=== PATIENT | male | born 1950 | race Caucasian/White ===

== ENCOUNTER 2023-03-27 14:25 | Inpatient (IN) | payer OTHER, MEDICARE, SELFPAY ==
[2023-03-27 16:00] VITALS: BP 141/65; PULSE 72; RESP 18; TEMP 36.2; O2SAT 100
[2023-03-27 18:07] VITALS: BMI 17.8
--- NOTE | 2023-03-27 19:14 | PC.ADMIT ---
Pt arrived via stretcher from [facility]. He had an argument with his last Saturday evening. She called the police b/c she felt threatened by him. The pt as well as his stated he stopped taking his meds four years ago. The pt also stated he doesn't want to take any medications. The nurse called the [facility] on [facility], they stated they have pt's profile on a computer but nothing else and that they keep info on their clients only for two years. PT's VS: 141/65-72-18, T 97.1, O2sat 100%. Denies pain. Skin check completed. Discolorations on left forearm from hand cuffs per patient report. Resident alert and oriented x 4. Denies SI/HI. Good appetite for supper. Ambulates independently with steady gait.
--- NOTE | 2023-03-27 19:58 | HO.PM.IMCN ---
History of Present Illness Data of Consult Service Date: 03/27/23 Requesting physician: Ramon Curtis Primary Care Provider: Unknown Physician HPI Reason for consult: medical H&P 72-year-old male with history of prostate cancer treated with radiation therapy, history of right renal infarction, dyslipidemia, hypertension, multiple sclerosis, history of glaucoma who is a current 1 pack per day smoker admitted to Geriatric Psychiatry with consult placed to hospitalist service for medical H and P. The patient is no longer taking any of his home medications and has not picked up medications from his pharmacy in the last 4 years. He states that he does not want these chemicals in his body. He was previously taking baby aspirin, lisinopril, Crestor, fish oil, and Niaspan for his comorbidities. He does continue smoking 1 pack per day cigarettes and denies any illicit drug use or alcohol use. He continues to experience urinary retention and follows with Urology but again declines Flomax. He has no complaints at this time. Review of Systems Review of Systems: General: No fevers, malaise, unintentional weight loss HEENT: No blurred vision, diplopia. No sore throat, nasal congestion, rhinorrhea, sinus pain, ear pain Cardiovascular: No chest pain, palpitations, or leg edema Respiratory: No shortness of breath, wheezing, cough GI: No abdominal pain, nausea, vomiting, diarrhea, constipation, melena, hematochezia : No dysuria, hematuria, increased urinary frequency, decreased urinary output MSK: No myalgia, back pain Neuro: No headaches, weakness, paresthesias Skin: No rashes or lesions [facility] Medical History (Updated 03/27/23 @ 20:07 by THOMAS Howard) Chronic fatigue syndrome Dyslipidemia History of adenocarcinoma of prostate History of external beam radiation therapy History of glaucoma Hypertension Multiple sclerosis Peripheral artery disease Renal infarction Surgical History (Updated 03/27/23 @ 20:07 by THOMAS Howard) History of bilateral total hip arthroplasty Social History Household Members: Spouse Housing: Apartment Do you presently have visiting nurse or other home services: No Patient Tobacco Use Status: Current someday Tobacco user Tobacco use type: Cigarette e-Cigarette/Vaping Use: Never Used Currently Displaying Signs/Symptoms of Drug Intoxication Withdrawal: No Advance Directives: No Advance Directives Information Provided: Yes Do you have thoughts of harming others: None Do you have a plan to hurt others: No Plan Sexual orientation: Straight/Heterosexual Meds Allergies Allergy/AdvReac Type Severity Reaction Status Date / Time atorvastatin [From LIPITOR] Allergy Mild RASH Unverified 06/09/20 14:48 ezetimibe [From ZETIA] Allergy Mild RASH Unverified 06/09/20 14:48 Statins Depletion Allergy Unknown Uncoded 05/22/18 00:00 Active Medications: Current Medications Acetaminophen (Acetaminophen 325 Mg Tablet) 650 mg PO Q6H PRN PRN Reason: Headache/Pain Mild Scale (1-3) Al Hydroxide/Mg Hydroxide (Magnesium Hydrox/Alum Hydrox 30 Ml Oral.Susp) 30 ml PO Q6H PRN PRN Reason: Heartburn/Nausea Hydroxyzine HCl (Hydroxyzine Hcl 25 Mg Tablet) 25 mg PO Q6H PRN PRN Reason: Anxiety Magnesium Hydroxide (Milk Of Magnesia 30 Ml Oral.Susp) 30 ml PO DAILY PRN PRN Reason: Constipation Trazodone HCl (Trazodone Hcl 50 Mg Tablet) 50 mg PO BEDTIME MRX1 PRN PRN Reason: Insomnia Physical Exam Vital Signs and Narrative: Vital Signs: Last Vital Signs Temp 97.1 F 03/27/23 16:00 Pulse 72 03/27/23 16:00 Resp 18 03/27/23 16:00 BP 141/65 H 03/27/23 16:00 Pulse Ox 100 03/27/23 16:00 O2 Del Method Room Air 03/27/23 16:00 BMI result Body Mass Index 17.8 Constitutional - Awake and Alert, No apparent distress Eyes - PERRLA, EOMI Cardiovascular - S1S2, RRR, No edema Respiratory - Normal lung expansion, Normal respiratory effort, No respiratory distress, CTA bilaterally Gastrointestinal - NT / ND; +BS; No rebound or guarding Extremities - no calf tenderness bilaterally, no swelling Musculoskeletal - Normal inspection, normal ROM Skin - Warm/Dry Neurological - Alert & oriented x3, CN II-XII in tact, 5/5 strength BUE and BLE Psychological - Appropriate affect, ?paranoia Assessment and Plan (1) Routine medical exam: Status: Acute Plan 72-year-old male with history of prostate cancer treated with radiation therapy, history of right renal infarction, dyslipidemia, hypertension, multiple sclerosis, history of glaucoma who is a current 1 pack per day smoker admitted to Geriatric Psychiatry with consult placed for medical H and P. #Hx prostate cancer with urinary retention -pt opposed to restarting flomax -no recurrent UTI -Currently urinates but with incomplete bladder emptying -Understands medication may help with this, but declines #HTN -bp slightly above goal -recommend resuming lisinopril 10mg if elevated BPs persist -Pt currently declines, counseled #PAD w/ history renal infarction -took coumadin for 1.5 years then on asa but stopped -declines as this is rat poison #MS -asymptomatic, untreated # dyslipidemia -previously taking Crestor, discontinued 4 years ago on his own # cigarette smoker -1 pack per day -declines nicotine replacement therapy -counseling given, not interested in quitting Patient counseled on his medication noncompliance. Counseled on the risks of not taking medications to control blood pressure, arterial disease, cholesterol. Patient seems to understand but does not wish to take medications citing them as ?rat poison?. I have reviewed patient's CBC, BMP which were unremarkable. U tox was negative and urinalysis was without evidence of infection. Remainder of plan per Psychiatry Thank you for allowing me to participate in this consult. Signing off at this time. Please do not hesitate to call for further questions. Time Spent With Patient Time: Total time managing care of this patient today ____ minutes.
--- NOTE | 2023-03-28 09:43 | PC.NURSE ---
Pt declined nicotine replacement therapy.
--- NOTE | 2023-03-28 09:54 | HO.PSYADMNOT ---
[facility] Date of Service: 03/28/23 Chief Complaint: Mood Sources of Information: patient interviewed, chart reviewed and crisis/core team assessment reviewed HPI Subjective Notes: Cohen Warning and Conditional Voluntary Narrative: The patient is a 72-year-old male, , with no biological children, living with his , referred from the emergency room a [facility] for altered mental status and agitation. According to the crisis assessment, his called 911 since he was being threatening towards her and her cats. According to the 's report to the crisis team, the patient had not taking a shower for more than a year ago, he had become seclusive not leaving his apartment, with decreased activity. Also she reported that he had been more angry and irritable and that they are that she called 911 the police showed up he became physically assaultive towards the officers and he was handcuffed and referred to the emergency room while he continued to be agitated and needed to be medicated IM with Haldol.. According to his 's report, the patient had baseline is very kind and cooperative, functional able to do his own ADL less but apparently for the last 1-1/2 year ago he was unable to take a shower, he become seclusive, irritable and verbally abusive at times. She also reported poor short-term memory and worsening of his cognition, she suspects that he is developing dementia. On interview, the patient refused to engage in the interview, he was lying in his bed, not responding to questions, awake but despondent. We will try to reengage later. On the meantime, we will continue with the medical workout. He will remain on 15 minutes check. At this moment, no angry outbursts in the unit. ON admission, he signed himself with a CV and release of information of his . Cohen warning was provided but the patient refused to disclose that he understood. Past Psychiatric History: No prior psychiatric admissions or treatment. Medical Evaluation Reviewed: Yes [facility] Medical History Chronic fatigue syndrome Dyslipidemia History of adenocarcinoma of prostate History of external beam radiation therapy History of glaucoma Hypertension Multiple sclerosis Peripheral artery disease Renal infarction Surgical History History of bilateral total hip arthroplasty Family History: The patient had a sibling, brother who committed suicide when he was 25 by shooting himself with a gun in the head Social History: The patient had been for no more than 39 years, he does not have any biological children, he worked and now his retired. Substance History: Denies Trauma History: Denies Diagnostics Vital Signs (24Hr): Vital Signs - 24 hr 03/27/23 16:00 Temperature 97.1 F Pulse Rate 72 Respiratory Rate 18 Blood Pressure 141/65 H Pulse Oximetry 100 Oxygen Delivery Method Room Air BMI result Body Mass Index 17.8 Meds/Allergies Allergies Allergies Allergy/AdvReac Type Severity Reaction Status Date / Time atorvastatin [From LIPITOR] Allergy Mild RASH Unverified 06/09/20 14:48 ezetimibe [From ZETIA] Allergy Mild RASH Unverified 06/09/20 14:48 Statins Depletion Allergy Unknown Uncoded 05/22/18 00:00 Mental Status Exam Mental Status Exam Patient Appearance: Appropriate Patient Orientation: Person Level of Consciousness: Awake and Disoriented Patient Behavior: Guarded and Passive Mood Description: Withdrawn Affect Description: Constricted Patient Cognition Impaired: Yes Ability to Follow Directions: Good Speech Pattern: No Speech Hallucinations: None Delusions: Paranoid Ideation Thought Process: Incoherent and Distracted Thought Content: positive for [place] Judgement: Poor Assessment & Plan Assessment & Plan (1) Mood disorder: Status: Acute Code(s): F39 - Unspecified mood [affective] disorder (2) Psychosis: Status: Acute Code(s): F29 - Unspecified psychosis not due to a substance or known physiological condition Plan The patient is an elderly male with no prior formal psychiatric history who was brought from the emergency room of another hospital since he was agitated, verbally abusive towards his and threatening violence against his beds, physically assaultive against the police officers that handcuff him and chemically restrain the emergency room. Apparently he had been noncompliant with medical treatment for more than a year, neck elected his ADL less and a change in his mental status. Plan 1. Gather collateral information. We will try to contact his . 2. We will continue with medical workout we are ordering blood work and new CT scan. 3. Referral to the medical team. 4. 15 minutes checks. 5. At this moment we will keep it only on p.r.n. medications since with not have enough information. 6. Reassessment with results Patient educated on: diagnosis Informed Consent: further education needed Reason for continued inpatient stay Substantial Risk for: harm to others, inability to function, rapid decompensation and med/psych decompensation Statement Statement: I have reviewed the history and physical and performed a pertinent examination on my patient. No changes have occurred unless specified. If the History and Physical was not performed prior to admission, the Hospitalist's service will be consulted for completing the admission physical. Time Spent With Patient Time: Total time managing care of this patient today _45___ minutes.
--- NOTE | 2023-03-28 18:38 | PC.NURSE ---
Unable to assess pt d/t patient's mental status. Agitated b/c wants to go home. Seen by Dr Curtis.
[2023-03-29 08:13] VITALS: BP 104/59; PULSE 88; RESP 16; TEMP 36.6; O2SAT 97
[2023-03-29 12:54] VITALS: BMI 17.8
--- NOTE | 2023-03-29 13:31 | HO.PSYCHPN ---
Subjective Subjective Date of Service: 03/29/23 Reason For Visit: Mood Subjective Notes: Conditional Voluntary Interim History: The nursing staff reported the patient had been violent, he has refuse medications and he has been threatening staff whenever he comes around him. We will try to get collateral information. Today, he was seclussive in his room, threatening any staff whenever the doors open. Mental Status Exam Mental Status Exam Patient Appearance: Well Grooomed and Appropriate Patient Orientation: Person and Situation Level of Consciousness: Awake and Appropriate Patient Behavior: Posturing and Restless Mood Description: Hostile and Labile Affect Description: Constricted Patient Cognition Impaired: Yes Ability to Follow Directions: Poor Speech Pattern: Clear Hallucinations: None Delusions: Paranoid Ideation Thought Process: Incoherent and Distracted Thought Content: positive for [place], positive for Perseveration and positive for Poverty of Content Judgement: Poor Diagnostics Vital Signs (24Hr): Vital Signs - 24 hr 03/29/23 08:13 Temperature 97.9 F Pulse Rate 88 Respiratory Rate 16 Blood Pressure 104/59 L Pulse Oximetry 97 Oxygen Delivery Method Room Air BMI result Body Mass Index 17.8 Medications Medications Current Medications Acetaminophen (Acetaminophen 325 Mg Tablet) 650 mg PO Q6H PRN PRN Reason: Headache/Pain Mild Scale (1-3) Al Hydroxide/Mg Hydroxide (Magnesium Hydrox/Alum Hydrox 30 Ml Oral.Susp) 30 ml PO Q6H PRN PRN Reason: Heartburn/Nausea Hydroxyzine HCl (Hydroxyzine Hcl 25 Mg Tablet) 25 mg PO Q6H PRN PRN Reason: Anxiety Magnesium Hydroxide (Milk Of Magnesia 30 Ml Oral.Susp) 30 ml PO DAILY PRN PRN Reason: Constipation Olanzapine (Olanzapine 5 Mg Tablet) 5 mg PO BEDTIME CRISTAL Last Admin: 03/28/23 23:06 Dose: Not Given Olanzapine (Olanzapine Odt 10 Mg Tab.Rapdis) 10 mg TRANSLINGU BID PRN PRN Reason: agitation Trazodone HCl (Trazodone Hcl 50 Mg Tablet) 50 mg PO BEDTIME MRX1 PRN PRN Reason: Insomnia Allergies Allergies Allergy/AdvReac Type Severity Reaction Status Date / Time atorvastatin [From LIPITOR] Allergy Mild RASH Unverified 06/09/20 14:48 ezetimibe [From ZETIA] Allergy Mild RASH Unverified 06/09/20 14:48 Statins Depletion Allergy Unknown Uncoded 05/22/18 00:00 Assessment & Plan Assessment & Plan (1) Mood disorder: Status: Acute Code(s): F39 - Unspecified mood [affective] disorder (2) Psychosis: Status: Acute Code(s): F29 - Unspecified psychosis not due to a substance or known physiological condition Plan The patient is an elderly male with no prior formal psychiatric history who was brought from the emergency room of another hospital since he was agitated, verbally abusive towards his and threatening violence against his beds, physically assaultive against the police officers that handcuff him and chemically restrain the emergency room. Apparently he had been noncompliant with medical treatment for more than a year, neck elected his ADL less and a change in his mental status. Plan 1. Gather collateral information. We will try to contact his . 2. We will continue with medical workout we are ordering blood work and new CT scan. 3. Referral to the medical team. 4. 15 minutes checks. 5. At this moment we will keep it only on p.r.n. medications since with not have enough information. 6. Reassessment with results Reason for continued inpatient stay Substantial Risk for: harm to others, inability to function, rapid decompensation and med/psych decompensation Time Spent With Patient Time: Total time managing care of this patient today __20__ minutes.
[2023-03-29 18:00] VITALS: BP 106/65; PULSE 110; RESP 16; TEMP 36.2; O2SAT 92
[2023-03-29] MEDS: traZODone HCL 50 MG TABLET PO (21:19)
[2023-03-30] MEDS: hydrOXYzine HCL 25 MG TABLET PO (01:25)
[2023-03-30] MEDS: traZODone HCL 50 MG TABLET PO (01:25)
--- NOTE | 2023-03-30 09:31 | HO.PSYCHPN ---
Subjective Subjective Date of Service: 03/30/23 Reason For Visit: Mood Subjective Notes: Conditional Voluntary Healthcare Proxy: No Guardianship: No Medical Problems Affecting Mental Status: No (none known but he is refusing most of work up) Interim History: Pt continues irritable, not sleeping refusing to participate in care is eating- refused to meet during meal then dismissed me and my questions after it's nobody's business how I sleep Medication Compliance: No Side effects from medications: No Attending Groups: No Review of Systems Acute medical concerns: No unknown at this point Medical Review of Systems: unchanged Mental Status Exam Mental Status Exam Narrative: uncooperative Patient Appearance: Unkempt and Rigid Patient Orientation: Person Level of Consciousness: Awake Patient Behavior: Guarded, Resistive to Care, Avoidant and Good Eye Contact Mood Description: Angry Affect Description: Hostile Ability to Follow Directions: Poor (re conversation, but does go to his room, eat meals) Speech Pattern: Clear Thought Process: Intact Thought Content: positive for [place] Depressive Symptoms: Insomnia and Increased Irritability Abnormal Motor Activity Signs and Symptoms: Restlessness Judgement: Poor (not allowing any work up of condition or even to engage in discussion) Diagnostics Vital Signs (24Hr): Vital Signs - 24 hr 03/29/23 18:00 Temperature 97.2 F Pulse Rate 110 H Respiratory Rate 16 Blood Pressure 106/65 Pulse Oximetry 92 Oxygen Delivery Method Room Air BMI result Body Mass Index 17.8 Medications Medications Current Medications Acetaminophen (Acetaminophen 325 Mg Tablet) 650 mg PO Q6H PRN PRN Reason: Headache/Pain Mild Scale (1-3) Al Hydroxide/Mg Hydroxide (Magnesium Hydrox/Alum Hydrox 30 Ml Oral.Susp) 30 ml PO Q6H PRN PRN Reason: Heartburn/Nausea Hydroxyzine HCl (Hydroxyzine Hcl 25 Mg Tablet) 25 mg PO Q6H PRN PRN Reason: Anxiety Last Admin: 03/30/23 01:25 Dose: 25 mg Magnesium Hydroxide (Milk Of Magnesia 30 Ml Oral.Susp) 30 ml PO DAILY PRN PRN Reason: Constipation Olanzapine (Olanzapine 5 Mg Tablet) 5 mg PO BEDTIME CRISTAL Last Admin: 03/29/23 21:19 Dose: 5 mg Olanzapine (Olanzapine Odt 10 Mg Tab.Rapdis) 10 mg TRANSLINGU BID PRN PRN Reason: agitation Trazodone HCl (Trazodone Hcl 50 Mg Tablet) 50 mg PO BEDTIME MRX1 PRN PRN Reason: Insomnia Last Admin: 03/30/23 01:25 Dose: 50 mg Allergies Allergies Allergy/AdvReac Type Severity Reaction Status Date / Time atorvastatin [From LIPITOR] Allergy Mild RASH Unverified 06/09/20 14:48 ezetimibe [From ZETIA] Allergy Mild RASH Unverified 06/09/20 14:48 Statins Depletion Allergy Unknown Uncoded 05/22/18 00:00 Assessment & Plan Assessment & Plan (1) Mood disorder: Status: Acute Code(s): F39 - Unspecified mood [affective] disorder Assessment and Plan: looks like he has been on olanzapine 5mg which he did take 03/29 , after refusing 03/28 (2) Psychosis: Status: Acute Code(s): F29 - Unspecified psychosis not due to a substance or known physiological condition Assessment and Plan: irritable and angry- not letting much be known- does appear xs guarded Plan The patient is an elderly male with no prior formal psychiatric history who was brought from the emergency room of another hospital since he was agitated, verbally abusive towards his and threatening violence against his beds, physically assaultive against the police officers that handcuff him and chemically restrain the emergency room. Apparently he had been noncompliant with medical treatment for more than a year, neck elected his ADL less and a change in his mental status. Plan 1. Gather collateral information. We will try to contact his . 2. We will continue with medical workout we are ordering blood work and new CT scan. 3. Referral to the medical team. 4. 15 minutes checks. 5. At this moment we will keep it only on p.r.n. medications since with not have enough information. 6. Reassessment with results Patient educated on: medication risk/benefits Informed Consent: does not understand and further education needed Reason for continued inpatient stay Substantial Risk for: harm to others, inability to function and rapid decompensation Time Spent With Patient Time: Total time managing care of this patient today ____ minutes.
--- NOTE | 2023-03-30 14:00 | PC.NURSE ---
Pt declined vitals, non compliant with nursing assessments, limited assessment related to pt irritability, Pt stated you people need to leave me alone.
[2023-03-30 18:00] VITALS: BP 113/55; PULSE 96; RESP 18; TEMP 36.2; O2SAT 98
[2023-03-30] MEDS: LORazepam 1 MG TABLET PO (21:39)
[2023-03-31 08:00] VITALS: BP 123/57; PULSE 71; RESP 18; TEMP 37.1; O2SAT 99
[2023-03-31 18:00] VITALS: BP 144/67; PULSE 66; RESP 18; TEMP 36; O2SAT 100
--- NOTE | 2023-04-01 14:41 | HO.PSYCHPN ---
Subjective Subjective Date of Service: 04/01/23 Reason For Visit: Mood Subjective Notes: Conditional Voluntary Interim History: The nursing staff reported that the patient ate only lunch yesterday. He took Zyprexa with a lot of encouragement but he had very poor sleep. Today we had a family meeting. His reported that In the last year he decompensated becoming very angry and irritable. According to her, it is uncharacteristic of him being violent. Today he refused to engage in conversation. Mental Status Exam Mental Status Exam Patient Appearance: Appropriate Patient Orientation: Person Level of Consciousness: Restless Patient Behavior: Belligerent and Poor Eye Contact Mood Description: Withdrawn Affect Description: Blunted Patient Cognition Impaired: Yes Ability to Follow Directions: Good Speech Pattern: Clear Hallucinations: None Delusions: Paranoid Ideation Thought Process: Disoriented and Illogical Thought Content: positive for [place] and positive for Thought Blocking Judgement: Poor Diagnostics Vital Signs (24Hr): Vital Signs - 24 hr 03/31/23 18:00 Temperature 96.8 F Pulse Rate 66 Respiratory Rate 18 Blood Pressure 144/67 H Pulse Oximetry 100 Oxygen Delivery Method Room Air BMI result Body Mass Index 17.8 Medications Medications Current Medications Acetaminophen (Acetaminophen 325 Mg Tablet) 650 mg PO Q6H PRN PRN Reason: Headache/Pain Mild Scale (1-3) Al Hydroxide/Mg Hydroxide (Magnesium Hydrox/Alum Hydrox 30 Ml Oral.Susp) 30 ml PO Q6H PRN PRN Reason: Heartburn/Nausea Hydroxyzine HCl (Hydroxyzine Hcl 25 Mg Tablet) 25 mg PO Q6H PRN PRN Reason: Anxiety Last Admin: 03/30/23 01:25 Dose: 25 mg Lorazepam (Lorazepam 1 Mg Tablet) 1 mg PO Q6H PRN PRN Reason: agiations/insomnia Last Admin: 03/30/23 21:39 Dose: 1 mg Magnesium Hydroxide (Milk Of Magnesia 30 Ml Oral.Susp) 30 ml PO DAILY PRN PRN Reason: Constipation Olanzapine (Olanzapine Odt 10 Mg Tab.Rapdis) 10 mg TRANSLINGU BID PRN PRN Reason: agitation Olanzapine (Olanzapine 5 Mg Tablet) 5 mg PO BEDTIME MRX1 CRISTAL Last Admin: 03/31/23 23:08 Dose: 5 mg Trazodone HCl (Trazodone Hcl 50 Mg Tablet) 50 mg PO BEDTIME MRX1 PRN PRN Reason: Insomnia Last Admin: 03/30/23 01:25 Dose: 50 mg Allergies Allergies Allergy/AdvReac Type Severity Reaction Status Date / Time atorvastatin [From LIPITOR] Allergy Mild RASH Unverified 06/09/20 14:48 ezetimibe [From ZETIA] Allergy Mild RASH Unverified 06/09/20 14:48 Statins Depletion Allergy Unknown Uncoded 05/22/18 00:00 Assessment & Plan Assessment & Plan (1) Mood disorder: Status: Acute Code(s): F39 - Unspecified mood [affective] disorder Assessment and Plan: looks like he has been on olanzapine 5mg which he did take 03/29 , after refusing 03/28 (2) Psychosis: Status: Acute Code(s): F29 - Unspecified psychosis not due to a substance or known physiological condition Assessment and Plan: irritable and angry- not letting much be known- does appear xs guarded Plan The patient is an elderly male with no prior formal psychiatric history who was brought from the emergency room of another hospital since he was agitated, verbally abusive towards his and threatening violence against his beds, physically assaultive against the police officers that handcuff him and chemically restrain the emergency room. Apparently he had been noncompliant with medical treatment for more than a year, neck elected his ADL less and a change in his mental status. Plan 1. Gather collateral information. We will try to contact his . 2. We will continue with medical workout we are ordering blood work and new CT scan. 3. Referral to the medical team. 4. 15 minutes checks. 5. At this moment we will keep it only on p.r.n. medications since with not have enough information. 6. Reassessment with results 7. Increase Zyprexa up to 10 mg p.o. q.h.s.. On April 01 Reason for continued inpatient stay Substantial Risk for: inability to function, rapid decompensation and med/psych decompensation Time Spent With Patient Time: Total time managing care of this patient today __20__ minutes.
--- NOTE | 2023-04-01 15:05 | MHC.CLN ---
F/U DIET=REGULAR. ATE 100% THIS LUNCH; DID NOT EAT BREAKFAST. PATIENT IS UNDERWEIGHT. ENCOURAGE INTAKE ABLE. RD TO FOLLOW FOR INTAKE/ACCEPTANCE OF FOOD.
[2023-04-01 19:40] VITALS: BP 134/78; PULSE 73; RESP 18; TEMP 36.1; O2SAT 95
[2023-04-02 10:45] VITALS: BP 167/76; PULSE 74; RESP 18; TEMP 36.5; O2SAT 99
--- NOTE | 2023-04-02 14:02 | HO.PSYCHPN ---
Subjective Subjective Date of Service: 04/02/23 Reason For Visit: Mood Subjective Notes: Conditional Voluntary Interim History: The nursing staff reported the patient refused his Zyprexa last night and he has refused to interact, heels refused vital signs. The occupational therapist will try to assess him today. He was seen in the common areas yesterday. The social media specialist reported that we have a family meeting with his yesterday and she is very scared that he can go back home, weeks plane about the mental hygiene low. Today I tried to engage with him but he refused to talk. Mental Status Exam Mental Status Exam Patient Appearance: Appropriate Patient Orientation: Person and Situation Level of Consciousness: Awake and Appropriate Patient Behavior: Guarded and Passive Mood Description: Withdrawn Affect Description: Labile Patient Cognition Impaired: Yes Ability to Follow Directions: Good Speech Pattern: No Speech Hallucinations: None Delusions: Paranoid Ideation Thought Process: Illogical Thought Content: positive for Thought Blocking Judgement: Poor Diagnostics Vital Signs (24Hr): Vital Signs - 24 hr 04/01/23 19:40 04/02/23 10:45 Temperature 96.9 F 97.7 F Pulse Rate 73 74 Respiratory Rate 18 18 Blood Pressure 134/78 167/76 H Pulse Oximetry 95 99 Oxygen Delivery Method Room Air Room Air BMI result Body Mass Index 17.8 Medications Medications Current Medications Acetaminophen (Acetaminophen 325 Mg Tablet) 650 mg PO Q6H PRN PRN Reason: Headache/Pain Mild Scale (1-3) Al Hydroxide/Mg Hydroxide (Magnesium Hydrox/Alum Hydrox 30 Ml Oral.Susp) 30 ml PO Q6H PRN PRN Reason: Heartburn/Nausea Hydroxyzine HCl (Hydroxyzine Hcl 25 Mg Tablet) 25 mg PO Q6H PRN PRN Reason: Anxiety Last Admin: 03/30/23 01:25 Dose: 25 mg Lorazepam (Lorazepam 1 Mg Tablet) 1 mg PO Q6H PRN PRN Reason: agiations/insomnia Last Admin: 03/30/23 21:39 Dose: 1 mg Magnesium Hydroxide (Milk Of Magnesia 30 Ml Oral.Susp) 30 ml PO DAILY PRN PRN Reason: Constipation Olanzapine (Olanzapine Odt 10 Mg Tab.Rapdis) 10 mg TRANSLINGU BID PRN PRN Reason: agitation Olanzapine (Olanzapine 10 Mg Tablet) 10 mg PO BEDTIME MRX1 CRISTAL Last Admin: 04/01/23 22:15 Dose: Not Given Trazodone HCl (Trazodone Hcl 50 Mg Tablet) 50 mg PO BEDTIME MRX1 PRN PRN Reason: Insomnia Last Admin: 03/30/23 01:25 Dose: 50 mg Allergies Allergies Allergy/AdvReac Type Severity Reaction Status Date / Time atorvastatin [From LIPITOR] Allergy Mild RASH Unverified 06/09/20 14:48 ezetimibe [From ZETIA] Allergy Mild RASH Unverified 06/09/20 14:48 Statins Depletion Allergy Unknown Uncoded 05/22/18 00:00 Assessment & Plan Assessment & Plan (1) Mood disorder: Status: Acute Code(s): F39 - Unspecified mood [affective] disorder Assessment and Plan: looks like he has been on olanzapine 5mg which he did take 03/29 , after refusing 03/28 (2) Psychosis: Status: Acute Code(s): F29 - Unspecified psychosis not due to a substance or known physiological condition Assessment and Plan: irritable and angry- not letting much be known- does appear xs guarded Plan The patient is an elderly male with no prior formal psychiatric history who was brought from the emergency room of another hospital since he was agitated, verbally abusive towards his and threatening violence against his beds, physically assaultive against the police officers that handcuff him and chemically restrain the emergency room. Apparently he had been noncompliant with medical treatment for more than a year, neck elected his ADL less and a change in his mental status. Plan 1. Gather collateral information. We will try to contact his . 2. We will continue with medical workout we are ordering blood work and new CT scan. 3. Referral to the medical team. 4. 15 minutes checks. 5. At this moment we will keep it only on p.r.n. medications since with not have enough information. 6. Reassessment with results 7. Increase Zyprexa up to 10 mg p.o. q.h.s.. On April 01 Reason for continued inpatient stay Substantial Risk for: inability to function, rapid decompensation and med/psych decompensation Time Spent With Patient Time: Total time managing care of this patient today __20__ minutes.
--- NOTE | 2023-04-03 14:20 | MHC.CLN ---
F/U DIET=REGULAR. STAFF REPORTS THAT PATIENT ATE VERY WELL YESTERDAY BUT DID NOT EAT TODAY. ENCOURAGE INTAKE ABLE. RD TO FOLLOW FOR INTAKE/ACCEPTANCE OF FOOD.
--- NOTE | 2023-04-03 14:49 | P.PNPSI_ITS ---
Subjective Subjective Date of Service: 04/03/23 Reason For Visit: Mood Interim History: Met with patient; discussed with team Patient irritable and with menacing glare on approach. On inquiry says I would be a hell of a lot better if I was out of here. Fastener Sewing Machine Operator tried to inquire about situation but patient did not want to talk. Tried to inquire about medication to which he said I am not taking medication...I do not need it. Any further attempts at discussion futile; patient then stood up with continued intense glare and marine underwriter made sure to keep distance away from patient for safety; patient said this conversation is over as far as I am concerned. Mental Status Exam Mental Status Exam Narrative: Pt is alert and oriented; behavior irritable, defensive; patient is not in distress; dressed in casual attire disheveled; mood is described as irritable and affect congruent, constricted; eye contact intense and menacing; Speech is normal rate, volume and prosody and not pressured; no psychomotor agitation/retardation present; thought process goal directed; Thought content is on angry that he is here otherwise will not discuss; denies any SI/HI. Unclear about AVH Patients insight and judgment impaired Diagnostics Vital Signs (24Hr): BMI result Body Mass Index 17.8 Medications Medications Current Medications Acetaminophen (Acetaminophen 325 Mg Tablet) 650 mg PO Q6H PRN PRN Reason: Headache/Pain Mild Scale (1-3) Al Hydroxide/Mg Hydroxide (Magnesium Hydrox/Alum Hydrox 30 Ml Oral.Susp) 30 ml PO Q6H PRN PRN Reason: Heartburn/Nausea Hydroxyzine HCl (Hydroxyzine Hcl 25 Mg Tablet) 25 mg PO Q6H PRN PRN Reason: Anxiety Last Admin: 03/30/23 01:25 Dose: 25 mg Lorazepam (Lorazepam 1 Mg Tablet) 1 mg PO Q6H PRN PRN Reason: agiations/insomnia Last Admin: 03/30/23 21:39 Dose: 1 mg Magnesium Hydroxide (Milk Of Magnesia 30 Ml Oral.Susp) 30 ml PO DAILY PRN PRN Reason: Constipation Olanzapine (Olanzapine Odt 10 Mg Tab.Rapdis) 10 mg TRANSLINGU BID PRN PRN Reason: agitation Olanzapine (Olanzapine 10 Mg Tablet) 10 mg PO BEDTIME MRX1 CRISTAL Last Admin: 04/03/23 00:02 Dose: Not Given Trazodone HCl (Trazodone Hcl 50 Mg Tablet) 50 mg PO BEDTIME MRX1 PRN PRN Reason: Insomnia Last Admin: 03/30/23 01:25 Dose: 50 mg Allergies Allergies Allergy/AdvReac Type Severity Reaction Status Date / Time atorvastatin [From LIPITOR] Allergy Mild RASH Unverified 06/09/20 14:48 ezetimibe [From ZETIA] Allergy Mild RASH Unverified 06/09/20 14:48 Statins Depletion Allergy Unknown Uncoded 05/22/18 00:00 Assessment & Plan Assessment & Plan (1) Mood disorder: Status: Acute Code(s): F39 - Unspecified mood [affective] disorder Assessment and Plan: looks like he has been on olanzapine 5mg which he did take 03/29 , after refusing 03/28 (2) Psychosis: Status: Acute Code(s): F29 - Unspecified psychosis not due to a substance or known physiological condition Assessment and Plan: irritable and angry- not letting much be known- does appear xs guarded Plan The patient is an elderly male with no prior formal psychiatric history who was brought from the emergency room of another hospital since he was agitated, verbally abusive towards his and threatening violence against his beds, physically assaultive against the police officers that handcuff him and chemically restrain the emergency room. Apparently he had been noncompliant with medical treatment for more than a year, neck elected his ADL less and a change in his mental status. Hospital Course 04/03 patient irritable, expressing anger they he is on the unit; refusing medication, refusing to engage or discuss anything. Patient has an intense, menacing glare making marine underwriter want to keep his distance for safety. Plan 1. Gather collateral information. We will try to contact his . 2. We will continue with medical workout we are ordering blood work and new CT scan. 3. Referral to the medical team. 4. 15 minutes checks. 5. At this moment we will keep it only on p.r.n. medications since with not have enough information. 6. Reassessment with results 7. Increase Zyprexa up to 10 mg p.o. q.h.s.. On April 01 Patient educated on: diagnosis and medication risk/benefits Informed Consent: does not understand Reason for continued inpatient stay Substantial Risk for: harm to others Time Spent With Patient Time: Total time managing care of this patient today ____ minutes.
--- NOTE | 2023-04-03 19:12 | PC.NURSE ---
WINIFRED THIS PATIENT POSTURED AT STAFF WHEN THEY WERE ASSISTING HIS ROOMMATE INTO BED. PT STARED AT STAFF WITHOUT SPEAKING, WHEN THEY SPOKE TO PATIENT ABOUT BEING RESPECTFUL AND SAFE. THIS RN ENCOURAGED PT TO ASK FOR ASSISTANCE IF HE NEEDS ANYTHING, AND BEHAVE IN A MANNER THAT FEELS SAFE TO ALL. HE THEN LAID BACK DOWN IN HIS BED, WHERE HE HAD SPENT MOST OF THE SHIFT.
[2023-04-03] MEDS: LORazepam 1 MG TABLET PO (21:17)
[2023-04-03] MEDS: OLANZapine 10 MG TABLET PO ×2 (21:30→22:03)
[2023-04-04 07:00] VITALS: BMI 19.0
[2023-04-04 08:30] VITALS: BP 113/77; PULSE 90; RESP 16; TEMP 36.4; O2SAT 96
--- NOTE | 2023-04-04 09:53 | P.PNPSI_ITS ---
Subjective Subjective Date of Service: 04/04/23 Reason For Visit: Mood Interim History: Met with patient; discussed with team On approach patient was lying in bed and said he was tired and did not want to talk. Unwilling to engage further. However he did take Zyprexa yesterday and multiple staff report that his demeanor has been much more pleasant. Patient did not remember that he was angry at anyone or aggressive and did not believe the reports. However today he has been friendly, attended groups, polite and overall calm. He also semi-bathed himself. ACLS test: 3.2 [place]: Mental Status Exam Mental Status Exam Narrative: Pt is alert and oriented; behavior calm, friendly, cooperative; patient is not in distress; dressed in casual attire with improved grooming; mood is described as good and affect congruent, more calm and friendly; eye contact appropriate; Speech is normal rate, volume and prosody and not pressured; no psychomotor agitation/retardation present; thought process goal directed; Thought content is on unclear but no expressed anger today; denies any SI/HI. Unclear about AVH Patients insight and judgment impaired Diagnostics Vital Signs (24Hr): BMI result Body Mass Index 17.8 Medications Medications Current Medications Acetaminophen (Acetaminophen 325 Mg Tablet) 650 mg PO Q6H PRN PRN Reason: Headache/Pain Mild Scale (1-3) Al Hydroxide/Mg Hydroxide (Magnesium Hydrox/Alum Hydrox 30 Ml Oral.Susp) 30 ml PO Q6H PRN PRN Reason: Heartburn/Nausea Hydroxyzine HCl (Hydroxyzine Hcl 25 Mg Tablet) 25 mg PO Q6H PRN PRN Reason: Anxiety Last Admin: 03/30/23 01:25 Dose: 25 mg Lorazepam (Lorazepam 1 Mg Tablet) 1 mg PO Q6H PRN PRN Reason: agiations/insomnia Last Admin: 04/03/23 21:17 Dose: 1 mg Magnesium Hydroxide (Milk Of Magnesia 30 Ml Oral.Susp) 30 ml PO DAILY PRN PRN Reason: Constipation Olanzapine (Olanzapine Odt 10 Mg Tab.Rapdis) 10 mg TRANSLINGU BID PRN PRN Reason: agitation Olanzapine (Olanzapine 10 Mg Tablet) 10 mg PO BEDTIME MRX1 CRISTAL Last Admin: 04/03/23 22:03 Dose: 10 mg Trazodone HCl (Trazodone Hcl 50 Mg Tablet) 50 mg PO BEDTIME MRX1 PRN PRN Reason: Insomnia Last Admin: 03/30/23 01:25 Dose: 50 mg Allergies Allergies Allergy/AdvReac Type Severity Reaction Status Date / Time atorvastatin [From LIPITOR] Allergy Mild RASH Unverified 06/09/20 14:48 ezetimibe [From ZETIA] Allergy Mild RASH Unverified 06/09/20 14:48 Statins Depletion Allergy Unknown Uncoded 05/22/18 00:00 Assessment & Plan Assessment & Plan (1) Mood disorder: Status: Acute Code(s): F39 - Unspecified mood [affective] disorder Assessment and Plan: looks like he has been on olanzapine 5mg which he did take 03/29 , after refusing 03/28 (2) Psychosis: Status: Acute Code(s): F29 - Unspecified psychosis not due to a substance or known physiological condition Assessment and Plan: irritable and angry- not letting much be known- does appear xs guarded Plan The patient is an elderly male with no prior formal psychiatric history who was brought from the emergency room of another hospital since he was agitated, verbally abusive towards his and threatening violence against his beds, physically assaultive against the police officers that handcuff him and chemically restrain the emergency room. Apparently he had been noncompliant with medical treatment for more than a year, neck elected his ADL less and a change in his mental status. Hospital Course 04/03 patient irritable, expressing anger they he is on the unit; refusing medication, refusing to engage or discuss anything. Patient has an intense, menacing glare making magnetic tape typewriter operator want to keep his distance for safety. 04/04 patient took Zyprexa last night and multiple staff report that his demeanor has been much more pleasant. Patient did not remember that he was angry at anyone or aggressive and did not believe the reports. However today he has been friendly, attended groups, polite and overall calm. He also semi- bathed himself. -given that patient i willingly took Zyprexa, magnetic tape typewriter operator decided to leave dose as it is and see if he continues to willingly adhere -patient had refused head CT which was initially seemingly important part of workup given lack of psychiatric history. However patient seems to be significantly improving with Zyprexa, making the case for psychiatric illness over organic origin. CT scan still preferred ACLS test: 3.2 [place]: Plan 1. Gather collateral information; coming for visit 2. refused CT. 3. Referral to the medical team. 4. 15 minutes checks. 5. At this moment we will keep it only on p.r.n. medications since with not have enough information. 6. Reassessment with results 7. Increase Zyprexa up to 10 mg p.o. q.h.s.. On April 01 Patient educated on: diagnosis Informed Consent: does not understand Reason for continued inpatient stay Substantial Risk for: rapid decompensation and med/psych decompensation Time Spent With Patient Time: Total time managing care of this patient today ____ minutes.
[2023-04-04 19:45] VITALS: BP 115/55; PULSE 76; RESP 17; TEMP 36.1; O2SAT 98
[2023-04-04] MEDS: OLANZapine 10 MG TABLET PO ×2 (20:14→21:40)
[2023-04-04] MEDS: LORazepam 1 MG TABLET PO (20:32)
[2023-04-05 07:45] VITALS: BP 142/67; PULSE 66; RESP 18; TEMP 36.2; O2SAT 100
--- NOTE | 2023-04-05 08:34 | HO.PSYCHPN ---
Subjective Subjective Date of Service: 04/05/23 Reason For Visit: Mood Interim History: Met with patient; discussed with team Patient marilou today; not aggressive but refusing to engage. On approach, patient lying in bed with covers over his head. He removed the covers to look at automatic typewriter inspector, glaring for a moment and then but the covers back over his head without saying a word. Discussed case with high school social studies teacher and patient reportedly Refused meeting with his without explanation. He still taking Zyprexa however Mental Status Exam Mental Status Exam Narrative: Pt is alert and oriented; behavior irritable, defensive; patient is not in distress; dressed in casual attire disheveled; mood is described as irritable and affect congruent, constricted; eye contact intense; Speech is normal rate, volume and prosody and not pressured; no psychomotor agitation/retardation present; thought process goal directed; Thought content is undisclosed; no expression of any SI/HI. Unclear about AVH Patients insight and judgment impaired Diagnostics Vital Signs (24Hr): Vital Signs - 24 hr 04/04/23 19:45 Temperature 97.0 F Pulse Rate 76 Respiratory Rate 17 Blood Pressure 115/55 L Pulse Oximetry 98 Oxygen Delivery Method Room Air BMI result Body Mass Index 19.0 Medications Medications Current Medications Acetaminophen (Acetaminophen 325 Mg Tablet) 650 mg PO Q6H PRN PRN Reason: Headache/Pain Mild Scale (1-3) Al Hydroxide/Mg Hydroxide (Magnesium Hydrox/Alum Hydrox 30 Ml Oral.Susp) 30 ml PO Q6H PRN PRN Reason: Heartburn/Nausea Hydroxyzine HCl (Hydroxyzine Hcl 25 Mg Tablet) 25 mg PO Q6H PRN PRN Reason: Anxiety Last Admin: 03/30/23 01:25 Dose: 25 mg Lorazepam (Lorazepam 1 Mg Tablet) 1 mg PO Q6H PRN PRN Reason: agiations/insomnia Last Admin: 04/04/23 20:32 Dose: 1 mg Magnesium Hydroxide (Milk Of Magnesia 30 Ml Oral.Susp) 30 ml PO DAILY PRN PRN Reason: Constipation Olanzapine (Olanzapine Odt 10 Mg Tab.Rapdis) 10 mg TRANSLINGU BID PRN PRN Reason: agitation Olanzapine (Olanzapine 10 Mg Tablet) 10 mg PO BEDTIME MRX1 CRISTAL Last Admin: 04/04/23 21:40 Dose: 10 mg Trazodone HCl (Trazodone Hcl 50 Mg Tablet) 50 mg PO BEDTIME MRX1 PRN PRN Reason: Insomnia Last Admin: 03/30/23 01:25 Dose: 50 mg Allergies Allergies Allergy/AdvReac Type Severity Reaction Status Date / Time atorvastatin [From LIPITOR] Allergy Mild RASH Unverified 06/09/20 14:48 ezetimibe [From ZETIA] Allergy Mild RASH Unverified 06/09/20 14:48 Statins Depletion Allergy Unknown Uncoded 05/22/18 00:00 Assessment & Plan Assessment & Plan (1) Mood disorder: Status: Acute Code(s): F39 - Unspecified mood [affective] disorder Assessment and Plan: looks like he has been on olanzapine 5mg which he did take 03/29 , after refusing 03/28 (2) Psychosis: Status: Acute Code(s): F29 - Unspecified psychosis not due to a substance or known physiological condition Assessment and Plan: irritable and angry- not letting much be known- does appear xs guarded Plan The patient is an elderly male with no prior formal psychiatric history who was brought from the emergency room of another hospital since he was agitated, verbally abusive towards his and threatening violence against his beds, physically assaultive against the police officers that handcuff him and chemically restrain the emergency room. Apparently he had been noncompliant with medical treatment for more than a year, neck elected his ADL less and a change in his mental status. Hospital Course 04/03 patient irritable, expressing anger they he is on the unit; refusing medication, refusing to engage or discuss anything. Patient has an intense, menacing glare making automatic typewriter inspector want to keep his distance for safety. 04/04 patient took Zyprexa last night and multiple staff report that his demeanor has been much more pleasant. Patient did not remember that he was angry at anyone or aggressive and did not believe the reports. However today he has been friendly, attended groups, polite and overall calm. He also semi-bathed himself. -given that patient i willingly took Zyprexa, automatic typewriter inspector decided to leave dose as it is and see if he continues to willingly adhere -patient had refused head CT which was initially seemingly important part of workup given lack of psychiatric history. However patient seems to be significantly improving with Zyprexa, making the case for psychiatric illness over organic origin. CT scan still preferred ACLS test: 3.2 [place]: 04/05 today patient reverted back to irritable, not willing to engage however has not demonstrated any aggressiveness. He will not talk about any of his thoughts or feelings with automatic typewriter inspector Patient keeps taking his Zyprexa and will continue at current dose; automatic typewriter inspector considered increasing dose however given patient's unwillingness to engage, automatic typewriter inspector is concerned that increasing the dose may anger him and he may refuse altogether. Plan 1. Gather collateral information; coming for visit 2. refused CT. 3. Referral to the medical team. 4. 15 minutes checks. 5. At this moment we will keep it only on p.r.n. medications since with not have enough information. 6. Reassessment with results 7. Increase Zyprexa up to 10 mg p.o. q.h.s.. On April 01 Reason for continued inpatient stay Substantial Risk for: harm to others and inability to function Time Spent With Patient Time: Total time managing care of this patient today ____ minutes.
--- NOTE | 2023-04-05 11:23 | MHC.CLN ---
F/U DIET=REGULAR. ENSURE BID PROVIDES ADDITIONAL 700 KCALS, 40 G PROTEIN. SHOWS FAVORABLE, SIGNIFICANT WEIGHT GAIN SINCE ADMISSION, +6.7%. ENCOURAGE INTAKE ABLE. RD TO FOLLOW FOR INTAKE/ACCEPTANCE OF FOOD.
--- NOTE | 2023-04-05 16:48 | PC.NURSE ---
pt refused lunch and dinner isolated in his room today and declined a visit from his .
[2023-04-05 20:05] VITALS: BP 127/68; PULSE 78; RESP 16; TEMP 36.1; O2SAT 100
[2023-04-05] MEDS: OLANZapine 10 MG TABLET PO ×2 (20:43→22:43)
[2023-04-06 08:00] VITALS: BP 145/63; PULSE 81; RESP 16; TEMP 37.5; O2SAT 100
--- NOTE | 2023-04-06 08:53 | P.PNPSI_ITS ---
Subjective Subjective Date of Service: 04/06/23 Reason For Visit: Mood Interim History: Met with patient; discussed with team pt calm; more willing to interact. On inquiry on how he's doing, he says better if i could get out of here... He asks when he'll leave and agrees to talk w/ primary team on saturday. Says he had a good conversation with his today, sleeping well. When asked if he remembers that he was angry he says people have moods up and down...that's all. when asked if remembers being threatening, he denies it ever happened and says that is an untruth. Mental Status Exam Mental Status Exam Narrative: Pt is alert and oriented; behavior calm, more engaged, cooperative; patient is not in distress; dressed in casual attire with improved grooming; mood is described as better if i was out of here and affect more calm ; eye contact appropriate; Speech is normal rate, volume and prosody and not pressured; no psychomotor agitation/retardation present; thought process goal directed; Thought content is on unclear but no expressed anger today; denies any SI/HI. Unclear about AVH Patients insight and judgment impaired but much improved Diagnostics Vital Signs (24Hr): Vital Signs - 24 hr 04/05/23 20:05 Temperature 97.0 F Pulse Rate 78 Respiratory Rate 16 Blood Pressure 127/68 Pulse Oximetry 100 Oxygen Delivery Method Room Air BMI result Body Mass Index 19.0 Medications Medications Current Medications Acetaminophen (Acetaminophen 325 Mg Tablet) 650 mg PO Q6H PRN PRN Reason: Headache/Pain Mild Scale (1-3) Al Hydroxide/Mg Hydroxide (Magnesium Hydrox/Alum Hydrox 30 Ml Oral.Susp) 30 ml PO Q6H PRN PRN Reason: Heartburn/Nausea Hydroxyzine HCl (Hydroxyzine Hcl 25 Mg Tablet) 25 mg PO Q6H PRN PRN Reason: Anxiety Last Admin: 03/30/23 01:25 Dose: 25 mg Lorazepam (Lorazepam 1 Mg Tablet) 1 mg PO Q6H PRN PRN Reason: agiations/insomnia Last Admin: 04/04/23 20:32 Dose: 1 mg Magnesium Hydroxide (Milk Of Magnesia 30 Ml Oral.Susp) 30 ml PO DAILY PRN PRN Reason: Constipation Olanzapine (Olanzapine Odt 10 Mg Tab.Rapdis) 10 mg TRANSLINGU BID PRN PRN Reason: agitation Olanzapine (Olanzapine 10 Mg Tablet) 10 mg PO BEDTIME MRX1 CRISTAL Last Admin: 04/05/23 22:43 Dose: 10 mg Trazodone HCl (Trazodone Hcl 50 Mg Tablet) 50 mg PO BEDTIME MRX1 PRN PRN Reason: Insomnia Last Admin: 03/30/23 01:25 Dose: 50 mg Allergies Allergies Allergy/AdvReac Type Severity Reaction Status Date / Time atorvastatin [From LIPITOR] Allergy Mild RASH Unverified 06/09/20 14:48 ezetimibe [From ZETIA] Allergy Mild RASH Unverified 06/09/20 14:48 Statins Depletion Allergy Unknown Uncoded 05/22/18 00:00 Assessment & Plan Assessment & Plan (1) Mood disorder: Status: Acute Code(s): F39 - Unspecified mood [affective] disorder Assessment and Plan: looks like he has been on olanzapine 5mg which he did take 03/29 , after refusing 03/28 (2) Psychosis: Status: Acute Code(s): F29 - Unspecified psychosis not due to a substance or known physiological condition Assessment and Plan: irritable and angry- not letting much be known- does appear xs guarded Plan The patient is an elderly male with no prior formal psychiatric history who was brought from the emergency room of another hospital since he was agitated, verbally abusive towards his and threatening violence against his beds, physically assaultive against the police officers that handcuff him and chemically restrain the emergency room. Apparently he had been noncompliant with medical treatment for more than a year, neck elected his ADL less and a change in his mental status. Hospital Course 04/03 patient irritable, expressing anger they he is on the unit; refusing medication, refusing to engage or discuss anything. Patient has an intense, menacing glare making magnetic tape typewriter operator want to keep his distance for safety. 04/04 patient took Zyprexa last night and multiple staff report that his demeanor has been much more pleasant. Patient did not remember that he was angry at anyone or aggressive and did not believe the reports. However today he has been friendly, attended groups, polite and overall calm. He also semi- bathed himself. -given that patient i willingly took Zyprexa, magnetic tape typewriter operator decided to leave dose as it is and see if he continues to willingly adhere -patient had refused head CT which was initially seemingly important part of workup given lack of psychiatric history. However patient seems to be significantly improving with Zyprexa, making the case for psychiatric illness over organic origin. CT scan still preferred ACLS test: 3.2 [place]: 04/05 today patient reverted back to irritable, not willing to engage however has not demonstrated any aggressiveness. He will not talk about any of his thoughts or feelings with magnetic tape typewriter operator Patient keeps taking his Zyprexa and will continue at current dose; magnetic tape typewriter operator considered increasing dose however given patient's unwillingness to engage, magnetic tape typewriter operator is concerned that increasing the dose may anger him and he may refuse altogether. 04/06 more calm, willing to engage; mildly social; good conversation with today; wants to discuss leaving. Plan 1. Gather collateral information; coming for visit 2. refused CT. 3. Referral to the medical team. 4. 15 minutes checks. 5. At this moment we will keep it only on p.r.n. medications since with not have enough information. 6. Reassessment with results 7. Increase Zyprexa up to 10 mg p.o. q.h.s.. On April 01 Patient educated on: diagnosis and medication risk/benefits Informed Consent: understands, does not understand and further education needed Reason for continued inpatient stay Substantial Risk for: rapid decompensation Time Spent With Patient Time: Total time managing care of this patient today ____ minutes.
[2023-04-06 20:09] VITALS: BP 140/84; PULSE 65; RESP 18; TEMP 36.9; O2SAT 97
[2023-04-06] MEDS: OLANZapine 10 MG TABLET PO ×2 (20:50→21:00)
[2023-04-06] MEDS: hydrOXYzine HCL 25 MG TABLET PO (20:50)
[2023-04-06] MEDS: traZODone HCL 50 MG TABLET PO (20:50)
[2023-04-07 07:30] VITALS: BP 121/56; PULSE 88; RESP 16; TEMP 36.6; O2SAT 97
--- NOTE | 2023-04-07 10:46 | P.PNPSI_ITS ---
Subjective Subjective Date of Service: 04/07/23 Reason For Visit: Mood Interim History: Met with patient; discussed with team pt calm, cooperative; no questions, no complaints. He said he would very much like to go home and agreed to sign a 3 day notice. taking medications Mental Status Exam Mental Status Exam Narrative: Pt is alert and oriented; behavior calm, more engaged, cooperative; patient is not in distress; dressed in casual attire with improved grooming; mood is described as Ok and affect more calm ; eye contact appropriate; Speech is normal rate, volume and prosody and not pressured; no psychomotor agitation/retardation present; thought process goal directed; Thought content is on unclear but no expressed anger today; denies any SI/HI. Unclear about AVH Patients insight and judgment impaired but much improved Diagnostics Vital Signs (24Hr): Vital Signs - 24 hr 04/06/23 20:09 04/07/23 07:30 Temperature 98.4 F 97.9 F Pulse Rate 65 88 Respiratory Rate 18 16 Blood Pressure 140/84 H 121/56 L Pulse Oximetry 97 97 Oxygen Delivery Method Room Air Room Air BMI result Body Mass Index 19.0 Medications Medications Current Medications Acetaminophen (Acetaminophen 325 Mg Tablet) 650 mg PO Q6H PRN PRN Reason: Headache/Pain Mild Scale (1-3) Al Hydroxide/Mg Hydroxide (Magnesium Hydrox/Alum Hydrox 30 Ml Oral.Susp) 30 ml PO Q6H PRN PRN Reason: Heartburn/Nausea Hydroxyzine HCl (Hydroxyzine Hcl 25 Mg Tablet) 25 mg PO Q6H PRN PRN Reason: Anxiety Last Admin: 04/06/23 20:50 Dose: 25 mg Lorazepam (Lorazepam 1 Mg Tablet) 1 mg PO Q6H PRN PRN Reason: agiations/insomnia Last Admin: 04/04/23 20:32 Dose: 1 mg Magnesium Hydroxide (Milk Of Magnesia 30 Ml Oral.Susp) 30 ml PO DAILY PRN PRN Reason: Constipation Olanzapine (Olanzapine Odt 10 Mg Tab.Rapdis) 10 mg TRANSLINGU BID PRN PRN Reason: agitation Olanzapine (Olanzapine 10 Mg Tablet) 10 mg PO BEDTIME MRX1 CRISTAL Last Admin: 04/06/23 21:00 Dose: 10 mg Trazodone HCl (Trazodone Hcl 50 Mg Tablet) 50 mg PO BEDTIME MRX1 PRN PRN Reason: Insomnia Last Admin: 04/06/23 20:50 Dose: 50 mg Allergies Allergies Allergy/AdvReac Type Severity Reaction Status Date / Time atorvastatin [From LIPITOR] Allergy Mild RASH Unverified 06/09/20 14:48 ezetimibe [From ZETIA] Allergy Mild RASH Unverified 06/09/20 14:48 Statins Depletion Allergy Unknown Uncoded 05/22/18 00:00 Assessment & Plan Assessment & Plan (1) Mood disorder: Status: Acute Code(s): F39 - Unspecified mood [affective] disorder Assessment and Plan: looks like he has been on olanzapine 5mg which he did take 03/29 , after refusing 03/28 (2) Psychosis: Status: Acute Code(s): F29 - Unspecified psychosis not due to a substance or known physiological condition Assessment and Plan: irritable and angry- not letting much be known- does appear xs guarded Plan The patient is an elderly male with no prior formal psychiatric history who was brought from the emergency room of another hospital since he was agitated, verbally abusive towards his and threatening violence against his beds, physically assaultive against the police officers that handcuff him and chemically restrain the emergency room. Apparently he had been noncompliant with medical treatment for more than a year, neck elected his ADL less and a change in his mental status. Hospital Course 04/03 patient irritable, expressing anger they he is on the unit; refusing medication, refusing to engage or discuss anything. Patient has an intense, menacing glare making assembly instructions writer want to keep his distance for safety. 04/04 patient took Zyprexa last night and multiple staff report that his demeanor has been much more pleasant. Patient did not remember that he was angry at anyone or aggressive and did not believe the reports. However today he has been friendly, attended groups, polite and overall calm. He also semi- bathed himself. -given that patient i willingly took Zyprexa, assembly instructions writer decided to leave dose as it is and see if he continues to willingly adhere -patient had refused head CT which was initially seemingly important part of workup given lack of psychiatric history. However patient seems to be significantly improving with Zyprexa, making the case for psychiatric illness over organic origin. CT scan still preferred ACLS test: 3.2 [place]: 04/05 today patient reverted back to irritable, not willing to engage however has not demonstrated any aggressiveness. He will not talk about any of his thoughts or feelings with assembly instructions writer Patient keeps taking his Zyprexa and will continue at current dose; assembly instructions writer considered increasing dose however given patient's unwillingness to engage, assembly instructions writer is concerned that increasing the dose may anger him and he may refuse altogether. 04/06 more calm, willing to engage; mildly social; good conversation with today; wants to discuss leaving. 04/07 remains calm, cooperative; wants to go home and signed 3 day notice; remains in behavioral control Plan 3 day notice 1. Gather collateral information; coming for visit 2. refused CT. 3. Referral to the medical team. 4. 15 minutes checks. 5. At this moment we will keep it only on p.r.n. medications since with not have enough information. 6. Reassessment with results 7. Increase Zyprexa up to 10 mg p.o. q.h.s.. On April 01 Reason for continued inpatient stay Substantial Risk for: rapid decompensation Time Spent With Patient Time: Total time managing care of this patient today ____ minutes.
[2023-04-07 20:00] VITALS: BP 129/60; PULSE 83; RESP 16; TEMP 36.6; O2SAT 98
[2023-04-07] MEDS: OLANZapine 10 MG TABLET PO (20:57)
--- NOTE | 2023-04-08 11:08 | P.PNPSI_ITS ---
Subjective Subjective Date of Service: 04/08/23 Reason For Visit: Mood Subjective Notes: Conditional Voluntary and 3 Day Interim History: The nursing staff reported the patient has not taking any shower, his and a 3 day notice over the weekend. The addiction social worker reported that his is not willing to take him back since he had been very aggressive. He has been refusing vital signs and medications but he has been compliant of Zyprexa at night. He eats and he goes right away to his room and he has been isolative not interacting with peers or staff. On interview, this prescriber with the addiction social worker and explained his situation. He denies suicidal or homicidal thoughts at this moment. Mental Status Exam Mental Status Exam Patient Appearance: Well Grooomed and Appropriate Patient Orientation: Person and Situation Level of Consciousness: Awake and Appropriate Patient Behavior: Guarded and Passive Mood Description: Withdrawn Affect Description: Constricted Patient Cognition Impaired: Yes Ability to Follow Directions: Good Speech Pattern: Clear Hallucinations: None Delusions: Paranoid Ideation Thought Process: Distracted and Linear Thought Content: positive for [place] and positive for Circumstantial Judgement: Fair Diagnostics Vital Signs (24Hr): Vital Signs - 24 hr 04/07/23 20:00 Temperature 97.9 F Pulse Rate 83 Respiratory Rate 16 Blood Pressure 129/60 Pulse Oximetry 98 Oxygen Delivery Method Room Air BMI result Body Mass Index 19.0 Medications Medications Current Medications Acetaminophen (Acetaminophen 325 Mg Tablet) 650 mg PO Q6H PRN PRN Reason: Headache/Pain Mild Scale (1-3) Al Hydroxide/Mg Hydroxide (Magnesium Hydrox/Alum Hydrox 30 Ml Oral.Susp) 30 ml PO Q6H PRN PRN Reason: Heartburn/Nausea Hydroxyzine HCl (Hydroxyzine Hcl 25 Mg Tablet) 25 mg PO Q6H PRN PRN Reason: Anxiety Last Admin: 04/06/23 20:50 Dose: 25 mg Lorazepam (Lorazepam 1 Mg Tablet) 1 mg PO Q6H PRN PRN Reason: agiations/insomnia Last Admin: 04/04/23 20:32 Dose: 1 mg Magnesium Hydroxide (Milk Of Magnesia 30 Ml Oral.Susp) 30 ml PO DAILY PRN PRN Reason: Constipation Olanzapine (Olanzapine Odt 10 Mg Tab.Rapdis) 10 mg TRANSLINGU BID PRN PRN Reason: agitation Olanzapine (Olanzapine 10 Mg Tablet) 10 mg PO BEDTIME MRX1 CRISTAL Last Admin: 04/07/23 23:12 Dose: Not Given Trazodone HCl (Trazodone Hcl 50 Mg Tablet) 50 mg PO BEDTIME MRX1 PRN PRN Reason: Insomnia Last Admin: 04/06/23 20:50 Dose: 50 mg Allergies Allergies Allergy/AdvReac Type Severity Reaction Status Date / Time atorvastatin [From LIPITOR] Allergy Mild RASH Unverified 06/09/20 14:48 ezetimibe [From ZETIA] Allergy Mild RASH Unverified 06/09/20 14:48 Statins Depletion Allergy Unknown Uncoded 05/22/18 00:00 Assessment & Plan Assessment & Plan (1) Mood disorder: Status: Acute Code(s): F39 - Unspecified mood [affective] disorder Assessment and Plan: looks like he has been on olanzapine 5mg which he did take 03/29 , after refusing 03/28 (2) Psychosis: Status: Acute Code(s): F29 - Unspecified psychosis not due to a substance or known physiological condition Assessment and Plan: irritable and angry- not letting much be known- does appear xs guarded Plan The patient is an elderly male with no prior formal psychiatric history who was brought from the emergency room of another hospital since he was agitated, verbally abusive towards his and threatening violence against his beds, physically assaultive against the police officers that handcuff him and chemically restrain the emergency room. Apparently he had been noncompliant with medical treatment for more than a year, neck elected his ADL less and a change in his mental status. Hospital Course 04/03 patient irritable, expressing anger they he is on the unit; refusing medication, refusing to engage or discuss anything. Patient has an intense, menacing glare making job specification writer want to keep his distance for safety. 04/04 patient took Zyprexa last night and multiple staff report that his demeanor has been much more pleasant. Patient did not remember that he was angry at anyone or aggressive and did not believe the reports. However today he has been friendly, attended groups, polite and overall calm. He also semi- bathed himself. -given that patient i willingly took Zyprexa, job specification writer decided to leave dose as it is and see if he continues to willingly adhere -patient had refused head CT which was initially seemingly important part of workup given lack of psychiatric history. However patient seems to be significantly improving with Zyprexa, making the case for psychiatric illness over organic origin. CT scan still preferred ACLS test: 3.2 [place]: 04/05 today patient reverted back to irritable, not willing to engage however has not demonstrated any aggressiveness. He will not talk about any of his thoughts or feelings with job specification writer Patient keeps taking his Zyprexa and will continue at current dose; job specification writer considered increasing dose however given patient's unwillingness to engage, job specification writer is concerned that increasing the dose may anger him and he may refuse altogether. 04/06 more calm, willing to engage; mildly social; good conversation with today; wants to discuss leaving. 04/07 remains calm, cooperative; wants to go home and signed 3 day notice; remains in behavioral control Plan 3 day notice 1. Gather collateral information; coming for visit 2. refused CT. 3. Referral to the medical team. 4. 15 minutes checks. 5. At this moment we will keep it only on p.r.n. medications since with not have enough information. 6. Reassessment with results 7. Increase Zyprexa up to 10 mg p.o. q.h.s.. On April 01 Reason for continued inpatient stay Substantial Risk for: inability to function, rapid decompensation and med/psych decompensation Time Spent With Patient Time: Total time managing care of this patient today __20__ minutes.
--- NOTE | 2023-04-08 14:41 | MHC.CLN ---
F/U DIET=REGULAR. ENSURE BID PROVIDES ADDITIONAL 700 KCALS, 40 G PROTEIN. CONTINUES WITH VARIABLE INTAKE. ATE 100% AT BREAKFAST TODAY AND DID NOT EAT LUNCH. ENCOURAGE INTAKE ABLE. RD TO FOLLOW WEEKLY FOR INTAKE.
--- NOTE | 2023-04-08 16:24 | PC.NURSE ---
pt requesting visit from , when arrived for visit he refused to see her.
[2023-04-08] MEDS: OLANZapine 10 MG TABLET PO ×2 (20:44→22:38)
--- NOTE | 2023-04-09 15:15 | P.PNPSI_ITS ---
Subjective Subjective Date of Service: 04/09/23 Reason For Visit: Mood Subjective Notes: Conditional Voluntary and 3 Day Interim History: The nursing staff reported the patient has been common cooperative, he slept 6 hours and he had been angry at times and isolative. Yesterday he refused to have a visit with his . He has been fully compliant with Zyprexa at bedtime. Today we had a family meeting and his was scared about having him back home because his to angry and she is feeling and safe with him. The patient was able to process the information and they were thinking about going to her sister's home. On interview he reports that he has not slept well at night but according to the staff he slept 6 hours. Mental Status Exam Mental Status Exam Patient Appearance: Well Grooomed and Appropriate Patient Orientation: Person and Situation Level of Consciousness: Awake and Alert Patient Behavior: Guarded and Passive Mood Description: Withdrawn Affect Description: Labile Patient Cognition Impaired: Yes Ability to Follow Directions: Good Speech Pattern: Clear Hallucinations: None Delusions: Paranoid Ideation Thought Process: Linear and Evasive Thought Content: positive for [place] and positive for Circumstantial Judgement: Fair Diagnostics Vital Signs (24Hr): BMI result Body Mass Index 19.0 Medications Medications Current Medications Acetaminophen (Acetaminophen 325 Mg Tablet) 650 mg PO Q6H PRN PRN Reason: Headache/Pain Mild Scale (1-3) Al Hydroxide/Mg Hydroxide (Magnesium Hydrox/Alum Hydrox 30 Ml Oral.Susp) 30 ml PO Q6H PRN PRN Reason: Heartburn/Nausea Hydroxyzine HCl (Hydroxyzine Hcl 25 Mg Tablet) 25 mg PO Q6H PRN PRN Reason: Anxiety Last Admin: 04/06/23 20:50 Dose: 25 mg Lorazepam (Lorazepam 1 Mg Tablet) 1 mg PO Q6H PRN PRN Reason: agiations/insomnia Last Admin: 04/04/23 20:32 Dose: 1 mg Magnesium Hydroxide (Milk Of Magnesia 30 Ml Oral.Susp) 30 ml PO DAILY PRN PRN Reason: Constipation Olanzapine (Olanzapine Odt 10 Mg Tab.Rapdis) 10 mg TRANSLINGU BID PRN PRN Reason: agitation Olanzapine (Olanzapine 10 Mg Tablet) 10 mg PO BEDTIME MRX1 CRISTAL Last Admin: 04/08/23 22:38 Dose: 10 mg Trazodone HCl (Trazodone Hcl 50 Mg Tablet) 50 mg PO BEDTIME MRX1 PRN PRN Reason: Insomnia Last Admin: 04/06/23 20:50 Dose: 50 mg Allergies Allergies Allergy/AdvReac Type Severity Reaction Status Date / Time atorvastatin [From LIPITOR] Allergy Mild RASH Unverified 06/09/20 14:48 ezetimibe [From ZETIA] Allergy Mild RASH Unverified 06/09/20 14:48 Statins Depletion Allergy Unknown Uncoded 05/22/18 00:00 Assessment & Plan Assessment & Plan (1) Mood disorder: Status: Acute Code(s): F39 - Unspecified mood [affective] disorder Assessment and Plan: looks like he has been on olanzapine 5mg which he did take 03/29 , after refusing 03/28 (2) Psychosis: Status: Acute Code(s): F29 - Unspecified psychosis not due to a substance or known physiological c ondition Assessment and Plan: irritable and angry- not letting much be known- does appear xs guarded Plan The patient is an elderly male with no prior formal psychiatric history who was brought from the emergency room of another hospital since he was agitated, verbally abusive towards his and threatening violence against his beds, physically assaultive against the police officers that handcuff him and chemically restrain the emergency room. Apparently he had been noncompliant with medical treatment for more than a year, neck elected his ADL less and a change in his mental status. Hospital Course 04/03 patient irritable, expressing anger they he is on the unit; refusing medication, refusing to engage or discuss anything. Patient has an intense, menacing glare making continuity writer want to keep his distance for safety. 04/04 patient took Zyprexa last night and multiple staff report that his demeanor has been much more pleasant. Patient did not remember that he was angry at anyone or aggressive and did not believe the reports. However today he has been friendly, attended groups, polite and overall calm. He also semi- bathed himself. -given that patient i willingly took Zyprexa, continuity writer decided to leave dose as it is and see if he continues to willingly adhere -patient had refused head CT which was initially seemingly important part of workup given lack of psychiatric history. However patient seems to be significantly improving with Zyprexa, making the case for psychiatric illness over organic origin. CT scan still preferred ACLS test: 3.2 [place]: 04/05 today patient reverted back to irritable, not willing to engage however has not demonstrated any aggressiveness. He will not talk about any of his thoughts or feelings with continuity writer Patient keeps taking his Zyprexa and will continue at current dose; continuity writer considered increasing dose however given patient's unwillingness to engage, continuity writer is concerned that increasing the dose may anger him and he may refuse altogether. 04/06 more calm, willing to engage; mildly social; good conversation with to day; wants to discuss leaving. 04/07 remains calm, cooperative; wants to go home and signed 3 day notice; remains in behavioral control Plan 3 day notice 1. Gather collateral information; coming for visit 2. refused CT. 3. Referral to the medical team. 4. 15 minutes checks. 5. At this moment we will keep it only on p.r.n. medications since with not have enough information. 6. Reassessment with results 7. Increase Zyprexa up to 10 mg p.o. q.h.s.. On April 01 . 8. Increase trazodone 100 mg p.o. q.h.s. to target insomnia. Reason for continued inpatient stay Substantial Risk for: inability to function, rapid decompensation and med/psych decompensation Time Spent With Patient Time: Total time managing care of this patient today _20___ minutes.
[2023-04-09 20:10] VITALS: BP 127/60; PULSE 77; RESP 18; TEMP 36.6; O2SAT 97
[2023-04-09] MEDS: LORazepam 1 MG TABLET PO (20:24)
[2023-04-09] MEDS: traZODone HCL 100 MG TABLET PO (20:24)
[2023-04-09] MEDS: OLANZapine 10 MG TABLET PO ×2 (20:24→23:33)
[2023-04-10 07:55] VITALS: BP 118/62; PULSE 77; RESP 18; TEMP 36.5; O2SAT 99
--- NOTE | 2023-04-10 12:52 | P.PNPSI_ITS ---
Subjective Subjective Date of Service: 04/10/23 Reason For Visit: Mood Subjective Notes: Conditional Voluntary Interim History: The nursing staff reported the patient has been isolative but more pleasant and cooperative, he has been visible in the unit. Unfortunately he slept only 3 hours last night. Yesterday the patient revoked his 3 day notice and the nephrology social worker reported that they spoke with the sister that will take him back home. He has refused aftercare treatment. On interview the patient denies new symptoms pleasant and cooperative no evidence of thought process disorder. Mental Status Exam Mental Status Exam Patient Appearance: Well Grooomed and Appropriate Patient Orientation: Person and Situation Level of Consciousness: Awake and Appropriate Patient Behavior: Guarded and Passive Mood Description: Calm Affect Description: Constricted Patient Cognition Impaired: Yes Ability to Follow Directions: Good Speech Pattern: Clear Hallucinations: None Delusions: Not Present Thought Content: positive for Circumstantial Judgement: Fair Diagnostics Vital Signs (24Hr): Vital Signs - 24 hr 04/09/23 20:10 04/10/23 07:55 Temperature 97.8 F 97.7 F Pulse Rate 77 77 Respiratory Rate 18 18 Blood Pressure 127/60 118/62 Pulse Oximetry 97 99 Oxygen Delivery Method Room Air Room Air BMI result Body Mass Index 19.0 Medications Medications Current Medications Acetaminophen (Acetaminophen 325 Mg Tablet) 650 mg PO Q6H PRN PRN Reason: Headache/Pain Mild Scale (1-3) Al Hydroxide/Mg Hydroxide (Magnesium Hydrox/Alum Hydrox 30 Ml Oral.Susp) 30 ml PO Q6H PRN PRN Reason: Heartburn/Nausea Hydroxyzine HCl (Hydroxyzine Hcl 25 Mg Tablet) 25 mg PO Q6H PRN PRN Reason: Anxiety Last Admin: 04/06/23 20:50 Dose: 25 mg Lorazepam (Lorazepam 1 Mg Tablet) 1 mg PO Q6H PRN PRN Reason: agiations/insomnia Last Admin: 04/09/23 20:24 Dose: 1 mg Magnesium Hydroxide (Milk Of Magnesia 30 Ml Oral.Susp) 30 ml PO DAILY PRN PRN Reason: Constipation Olanzapine (Olanzapine Odt 10 Mg Tab.Rapdis) 10 mg TRANSLINGU BID PRN PRN Reason: agitation Olanzapine (Olanzapine 10 Mg Tablet) 10 mg PO BEDTIME MRX1 CRISTAL Last Admin: 04/09/23 23:33 Dose: 10 mg Trazodone HCl (Trazodone Hcl 50 Mg Tablet) 50 mg PO BEDTIME MRX1 PRN PRN Reason: Insomnia Last Admin: 04/06/23 20:50 Dose: 50 mg Trazodone HCl (Trazodone Hcl 100 Mg Tablet) 100 mg PO BEDTIME CRISTAL Last Admin: 04/09/23 20:24 Dose: 100 mg Allergies Allergies Allergy/AdvReac Type Severity Reaction Status Date / Time atorvastatin [From LIPITOR] Allergy Mild RASH Unverified 06/09/20 14:48 ezetimibe [From ZETIA] Allergy Mild RASH Unverified 06/09/20 14:48 Statins Depletion Allergy Unknown Uncoded 05/22/18 00:00 Assessment & Plan Assessment & Plan (1) Mood disorder: Status: Acute Code(s): F39 - Unspecified mood [affective] disorder Assessment and Plan: looks like he has been on olanzapine 5mg which he did take 03/29 , after refusing 03/28 (2) Psychosis: Status: Acute Code(s): F29 - Unspecified psychosis not due to a substance or known physiological condition Assessment and Plan: irritable and angry- not letting much be known- does appear xs guarded Plan The patient is an elderly male with no prior formal psychiatric history who was brought from the emergency room of another hospital since he was agitated, verbally abusive towards his and threatening violence against his beds, physically assaultive against the police officers that handcuff him and chemically restrain the emergency room. Apparently he had been noncompliant with medical treatment for more than a year, neck elected his ADL less and a change in his mental status. Hospital Course 04/03 patient irritable, expressing anger they he is on the unit; refusing medication, refusing to engage or discuss anything. Patient has an intense, menacing glare making conventional underwriter want to keep his distance for safety. 04/04 patient took Zyprexa last night and multiple staff report that his demeanor has been much more pleasant. Patient did not remember that he was angry at anyone or aggressive and did not believe the reports. However today he has been friendly, attended groups, polite and overall calm. He also semi- bathed himself. -given that patient i willingly took Zyprexa, conventional underwriter decided to leave dose as it is and see if he continues to willingly adhere -patient had refused head CT which was initially seemingly important part of workup given lack of psychiatric history. However patient seems to be significantly improving with Zyprexa, making the case for psychiatric illness over organic origin. CT scan still preferred ACLS test: 3.2 [place]: 04/05 today patient reverted back to irritable, not willing to engage however has not demonstrated any aggressiveness. He will not talk about any of his th oughts or feelings with conventional underwriter Patient keeps taking his Zyprexa and will continue at current dose; conventional underwriter considered increasing dose however given patient's unwillingness to engage, conventional underwriter is concerned that increasing the dose may anger him and he may refuse altogether. 04/06 more calm, willing to engage; mildly social; good conversation with today; wants to discuss leaving. 04/07 remains calm, cooperative; wants to go home and signed 3 day notice; remains in behavioral control Plan 3 day notice 1. Gather collateral information; coming for visit 2. refused CT. 3. Referral to the medical team. 4. 15 minutes checks. 5. At this moment we will keep it only on p.r.n. medications since with not have enough information. 6. Reassessment with results 7. Increase Zyprexa up to 10 mg p.o. q.h.s.. On April 01 . 8. Increase trazodone 100 mg p.o. q.h.s. to target insomnia. Reason for continued inpatient stay Substantial Risk for: inability to function, rapid decompensation and med/psych decompensation Time Spent With Patient Time: Total time managing care of this patient today _20___ minutes.
[2023-04-10] MEDS: OLANZapine 10 MG TABLET PO (20:02)
[2023-04-10] MEDS: traZODone HCL 100 MG TABLET PO (20:02)
[2023-04-10 20:05] VITALS: BP 132/72; PULSE 77; RESP 18; TEMP 36.4; O2SAT 77
--- NOTE | 2023-04-11 08:15 | PM.PSYDC ---
DS: Providers Provider Date of Service: 04/11/23 Date of admission: 03/27/23 14:25 Date of discharge: 04/11/23 Primary care physician: Unknown Physician Consults: 03/27/23 15:21 Consult to Hospitalist Routine Comment: Consulting Provider: Hospitalist Reason For Exam: Direct admission DS: Diagnosis Discharge Diagnosis (1) Mood disorder: Status: Acute (2) Psychosis: Status: Acute Mental Status Exam Mental Status Exam Patient Appearance: Appropriate Patient Orientation: Person, Place, Time and Situation Level of Consciousness: Awake and Appropriate Patient Behavior: Guarded and Cooperative Mood Description: Constricted Affect Description: Calm Patient Cognition Impaired: Yes Ability to Follow Directions: Good Speech Pattern: Clear Hallucinations: None Delusions: Not Present Thought Process: Distracted, Evasive and Slowed Thinking Thought Content: positive for [place] and positive for Circumstantial Judgement: Fair DS: Summary Hospital Course Hospital Course: The patient is a 72-year-old male, , living with his with no prior psychiatric history. The patient was brought to the emergency room of [facility] after his called 911 since the patient was extremely anxious and violent against her and her beds. The crisis team assessed him, he was initially chemically restrain an emergency room due to agitation and transferring to this facility for psychiatric stabilization. Please see the HPI note of the admission for further details. On admission, the patient was placed on one-to-one he was extremely belligerent and threatening violence. We had an initial assessment with the team and he was unable to participate due to his agitation and anger. We also gather collateral information and his reported that on the last 6 months he has been deteriorating cognitively, he has been taking a shower in several months and he had been extremely more violent verbally. No evidence of physical violence. The patient was initially started on Zyprexa that was titrated up to 10 mg p.o. q.h.s.. Eventually, the patient was able to verbalized his anger and explained why he was feeling so dysphoric elated. Apparently they have been having marital conflicts for months, the patient has not followed any medical or psychiatric treatment in the past. We also noticed that the patient had an inverse sleep cycle sleeping mostly during the day and having a hard time sleeping at night. We increase trazodone up to 100 mg p.o. q.h.s. and keep Zyprexa 10 mg. We had a family meeting and his was very scared about him, she did not want him back at his home. The patient has refused any aftercare but there was no violent episodes in the unit, the only episodes of violence that we have noticed was according to the crisis assessment on the emergency room of another hospital. The patient initially signed a 3 day notice but later on he retracted so we can coordinate his discharge to his sister's home. The social services counselor contact his sister and she is willing to take him for a short period of time. While he was here, it was evident the patient did not have a thought process disorder mostly was moods rate dysregulation but no safety concerns. The patient did not cooperate with cognitive assessments but he was able to do his own ADL less, remember what we discussed the day before and there were no safety concerns at the moment of the discharge. The patient is fully aware of the consequence of violent behavior. Time spent discussing smoking cessation with patient: 3 to 10 minutes Status at Discharge Cognitive/behavioral status at discharge: At baseline Functional status at discharge: independent ambulation Overall status at discharge: patient is back to baseline Time Spent with Patient Time attestation: Total time managing care of this patient today _30___ minutes. Time spent: Less than 30 minutes Discharge Plan Discharge Anticipated Discharge Date/Time: 04/11/23 10:00 Patient Disposition: Home, Self-Care Discharge Diagnosis: Mood disorder NOS Referrals: Physician,Unknown J [Primary Care Provider] - 1 Week Discharge Medications: New olanzapine 10 mg Tablet 10 mg PO BEDTIME MRX1 30 Days Qty: 60 0RF trazodone 100 mg Tablet 100 mg PO BEDTIME 30 Days Qty: 30 0RF Discharge Orders: Discharge Order (Routine); Ordered 04/11/23 Ordered By: Ramon Curtis Diet: Advance to usual diet Activity on Discharge: As tolerated Stand Alone Forms: Patient Portal Discharge page Care Plan Goals: Care plan goals achieved in this admission Health Concerns: Continue treatment with primary care physician Plan of Treatment: We recommend the patient to continue outpatient providers. Assessment: Elderly male with no prior psychiatric history admitted for episodes of anger and verbal violence. He was initially assessed by the crisis team of [facility] and transferring to this facility for psychiatric stabilization. The patient was able to show safe behavior in the unit. No evidence of thought process disorder, suicidal or homicidal thoughts. Discharge to the care of his sister.
[2023-04-11 08:30] VITALS: BP 152/68; PULSE 72; RESP 18; TEMP 35.8; O2SAT 100
== END 2023-04-11 14:17 | disposition home or self-care (01) | DRG 885 ==
PROVIDERS: Admitting Provider Psychiatry & Neurology Psychiatry; Visit Provider Psychiatry & Neurology Psychiatry
DX: F39 Unspecified mood [affective] disorder (principal); F17.210 Nicotine dependence, cigarettes, uncomplicated; Z71.6 Tobacco abuse counseling; I10 Essential (primary) hypertension; I73.9 Peripheral vascular disease, unspecified; R33.9 Retention of urine, unspecified; G35 Multiple sclerosis; Z85.46 Personal history of malignant neoplasm of prostate; Z91.148 Patient's other noncompliance with medication regimen for other reason; Z92.3 Personal history of irradiation; Z79.899 Other long term (current) drug therapy

== ENCOUNTER → 2023-03-27 14:25 | Outpatient (BNV) | payer OTHER, MEDICARE, SELFPAY | PROVIDERS: Admitting Provider Psychiatry & Neurology Psychiatry; Visit Provider Psychiatry & Neurology Psychiatry | DX: F39 Unspecified mood [affective] disorder (principal); F29 Unspecified psychosis not due to a substance or known physiological condition | CPT/HCPCS: 90792; 99231; 99232; 99238 ==